=== PATIENT | female | born 1980 | race Caucasian/White ===

== ENCOUNTER 2019-01-11 06:00 | Inpatient (IN) | payer OTHER ==
[2019-01-11 07:04] VITALS: BMI 32.0
[2019-01-11] MEDS: ELECTROLYTE-148 SOLN 1,000 ML IV SCH (07:15)
[2019-01-11] MEDS ORDERED: ELECTROLYTE-148 SOLN 500 ML IV ONE (07:57)
[2019-01-11] MEDS ORDERED: CITRIC ACID/SODIUM CITRATE 30 ML UNIT-DOSE CUP PO ONE ×2 (07:57→07:58)
[2019-01-11] MEDS ORDERED: morphine SULFATE/Preservative Free 0.5 MG/ML (1cc Syringe) EP ONE (07:58)
[2019-01-11] MEDS ORDERED: ONDANSETRON 4 MG/2 ML VIAL IVPUSH PRN (07:58)
--- NOTE | 2019-01-11 08:01 | HP ---
Past Medical History - Admission Chief Complaint: RLTCS, BTL History of Present Illness: 38yo @ 39wks here for scheduled RLTCS, BTL No VB/LOF. No ctx. +FM Preg c/b AMA, nl testing. prior C/S History Source: Patient Limitations to Obtaining History: Language Barrier - Past Medical History MAILMASTER: No: Alzheimer's, CVA, Dementia, Migraine, Multiple Sclerosis, Peripheral Neuropathy, Parkinson's, Seizure, Syncope, TIA, Vertigo, Other Cardiovascular: No: AFIB, Aneurysm, Aortic Insufficiency, Aortic Stenosis, CAD, CHF, Deep Vein Thrombosis, HTN, Hyperlipdemia, NH, Mitral Insufficiency, Mitral Stenosis, Murmur, Pulmonary Hypertension, Other Pulmonary: No: Asthma, Bronchitis, Cancer, COPD, O2 Dependent, Pneumonia, Previously Intubated, Pulmonary Embolus, Pulmonary Fibrosis, Sleep Apnea, Other Gastrointestinal: No: Ascites, Cancer, Constipation, Crohn's Disease, Diverticulitis, Diverticulosis, Esophageal Varices, Gastritis, GERD, GI Bleed, Hemorrhoids, Hiatal Hernia, Inflamatory Bowel Disease, Irritable Bowel Disease, Pancreatitis, Peptic Ulcer Disease, Ulcerative Colitis, Other ...: 3 ...Para: 2 ...Term: 2 ...: 0 ...Spon : 0 ...Induced : 0 ...Multiple Gestation: 0 ...LMP: 04/12/18 ... Weeks Gestation by Dates: 39 ...EDC by Dates: 01/16/19 ...EDC by Sono: 01/17/19 Heme/Onc: Yes: Anemia Infectious Disease: No: AIDS, C-Diff, Herpes Zoster, HIV, MRSA, STD's, Tuberculosis, VREF, Other Psych: No: Addictions, Anxiety, Bipolar, Depression, Panic, Psychosis, Schizophrenia, Other Musculoskeletal: No: Bursitis, Chronic low back pain, Hemiparesis, Hemiplegia, Osteoarthritis, Paraplegia, Other Rheumatology: No: Fibromyalgia, Gout, Lupus, Rheumatoid Arthritis, Sarcoidosis, Vasculitis, Other ENT: No: Allergic Rhinitis, Sinusitis, Other - Past Surgical History Past Surgical History: Yes: Hx Myomectomy: No Hx Transabdominal Cerclage: No - Smoking History Smoking history: Never smoked Have you smoked in the past 12 months: No - Alcohol/Substance Use Hx Alcohol Use: No History of Substance Use: reports: None - Social History Usual Living Arrangement: Yes: Alone ADL: Independent History of Recent Travel: No Home Medications - Allergies Allergies/Adverse Reactions: Allergies Allergy/AdvReac Type Severity Reaction Status Date / Time No Known Allergies Allergy Verified 01/11/19 07:40 - Home Medications Home Medications: Ambulatory Orders Pnv No.95/Ferrous Fum/Folic AC [ Vitamin Tablet] 1 each PO DAILY Physical Exam - Maternity Vital Signs: Vital Signs Temperature 98.3 F 01/11/19 06:00 Pulse Rate 94 H 01/11/19 06:00 Respiratory Rate 18 01/11/19 06:00 Blood Pressure 120/68 01/11/19 06:00 O2 Sat by Pulse Oximetry (%) Constitutional: Yes: Well Nourished, No Distress, Calm Eyes: Yes: WNL, Conjunctiva Clear, EOM Intact - Abdominal Exam/OB Number of Fetuses: Single Presentation: Vertex Contractions: No Category: I Accelerations: Non-Uniform Decelerations: None - Physical Exam Edema: No Problem List - Problems (1) History of Code(s): Z98.891 - HISTORY OF UTERINE SCAR FROM PREVIOUS SURGERY Assessment/Plan 38yo @ 39wks here for RLTCS, BTL Admit to L&D NPO, IVFs Cao SCDs Ancef Risk of procedure including bleeding, infection, injury to surrounding organs, permanency of tubal ligation. All questions answered in Turkish. Consents signed. Alejandra Harding MD
[2019-01-11] MEDS ORDERED: ceFAZolin SODIUM 1 GM VIAL ONE (08:07)
[2019-01-11] MEDS ORDERED: morphine SULFATE/PF 0.5 MG/ML (2cc Syringe - QUVA) ONE (08:07)
[2019-01-11] MEDS ORDERED: OXYTOCIN 10 UNITS/ML VIAL ONE (08:32)
[2019-01-11] MEDS ORDERED: IBUPROFEN 800 MG/8 ML IJ IVPB PRN (09:02)
[2019-01-11] MEDS ORDERED: oxyCODONE HCL 5 MG TABLET PO PRN (09:02)
[2019-01-11] MEDS ORDERED: METHYLERGONOVINE MALEATE 0.2 MG/1 ML AMP IM PRN (09:02)
--- NOTE | 2019-01-11 09:02 | OP ---
Operative Note - Note: Operative Date: 01/11/19 Pre-Operative Diagnosis: Prior C/S, desires permanent sterilization Operation: Repeat Low Transverse Findings: VMI, KISHOR position. No nuchal. No meconium. Apgatrs 04/05. Weight pending. Normal tubes and ovaries. Post-Operative Diagnosis: Same as Pre-op Surgeon: Yaneth Harding Segmental Wall Installer: Skyler Lucio Anesthesia: Spinal Estimated Blood Loss (mls): 400 Drains, Volume Out (mls): 200 (clear urine) Operative Report Dictated: Yes
[2019-01-11] MEDS ORDERED: OXYTOCIN 20 UNITS in 0.9% NS 20 UNIT/1,000 ML INFUS.BAG IV ONE (09:42)
[2019-01-11] MEDS: OXYTOCIN 20 UNITS in 0.9% NS 20 UNIT/1,000 ML INFUS.BAG IV SCH ×2 (09:46→18:14)
[2019-01-11] MEDS: PRENATAL VITAMINS W/ FOLIC ACID TABLET (FP) PO SCH (10:06)
--- NOTE | 2019-01-11 11:52 | OP ---
DATE OF OPERATION: 01/11/2019 PREOPERATIVE DIAGNOSIS: A 39-week , prior section, desires permanent sterilization. POSTOPERATIVE DIAGNOSIS: A 39-week , prior section, desires permanent sterilization. PROCEDURE: Repeat low-transverse section. ANESTHESIA: Kalia Velazco MD ANESTHESIA TYPE: Spinal. SURGEON: Yaneth Harding MD CORE LOADER: TOO Mccrary IV FLUIDS: Per Anesthesia record. ESTIMATED BLOOD LOSS: 400 mL. URINE OUTPUT: 200 mL of clear urine at the end of the procedure. FINDINGS: Viable male infant, KISHOR position. No nuchal, no meconium. Thin lower uterine segment. Weight pending. Apgars 8 and 9. Normal tubes and ovaries bilaterally. COMPLICATIONS: None. CONDITION: Stable to recovery room. NATURE OF PROCEDURE: After the appropriate consents were signed, patient was taken to the operating room. Spinal anesthesia was administered. Cao catheter had been inserted prior to entry into the operating room. The abdomen was prepped and draped in normal sterile fashion. Timeout was performed, confirming correct patient and procedure. A Pfannenstiel incision was made through the prior incision and carried through to the underlying layers until the fascia was nicked in the midline. The fascia was then extended laterally with the Pina scissors. The fascia and rectus muscles were noted to be adhered together. The superior aspect of the fascia was grasped with a Liliam clamp, tented upwards, and the rectus muscles that could be dissected off were dissected off. The peritoneum was then grasped with 2 hemostats, tented upwards, and entered sharply with the Metzenbaum scissors. Peritoneum was then extended manually. Bladder flap was created with the Metzenbaum scissors and then digitally. Bladder blade was inserted. The uterine segment was noted to be very thin. Using a scalpel, it was incised in a low transverse fashion. Clear amniotic fluid, copious amounts, was noted. The infant's head was delivered without difficulty, as were the remaining shoulder and body. Cord was clamped and cut. The was handed off to the awaiting pediatric staff. The placenta was then manually cleared from the uterus. The uterus was cleared of all clot and debris. The uterus was then exteriorized. The hysterotomy was closed in 2 layers with a 1-0 Vicryl, with good hemostasis. Attention was then paid to the tubal sterilization. The fallopian tube on the right was grasped with the [place], carried through to the fimbriated end in the isthmic portion. The tube was then suture ligated with a 2-0 plain in the modified Ryegate fashion. The tubal stump was then removed with the Metzenbaum scissors. The tubal stump was then cauterized with the Bovie. Attention was then paid to the left fallopian tube, which was then also ligated in the modified Ryegate fashion without difficulty. The uterus was then returned to the abdomen. The hysterotomy was reapproximated and noted to have an area centrally of hemostasis, which was reinforced with a 0 Vicryl for good hemostasis. The fallopian stumps were then reinspected and noted to be hemostatic. The fascia was then closed with a 0 Vicryl. The skin was closed with a 3-0 Vicryl. Appropriate dressing and bandages were placed. All sponge, lap, needle counts were correct x3. The patient did receive Ancef at the start of the procedure. She was taken from the operating room to the recovery area in stable condition. MD PARAG SOTO/[id number]
[2019-01-11] MEDS: FERROUS SO4 325 MG TABLET (FP) PO SCH (17:59)
[2019-01-11] MEDS ORDERED: SENNOSIDES/DOCUSATE COMBO (SENNA PLUS) TABLET (UD) PO PRN (22:00)
[2019-01-12] MEDS: SIMETHICONE 80 MG TAB.CHEW (FP) PO PRN ×2 (04:52→15:49)
[2019-01-12] MEDS: IBUPROFEN 600 MG TABLET (FP) PO PRN ×3 (04:53→15:49)
--- NOTE | 2019-01-12 05:25 | PN ---
Post Progress Note - Subjective Subjective: 38 yo Para 3, status post repeat , seen and evaluated. She c/o mild incision pain. Post Day: 1 Type of Delivery: Repeat C/S Vital Signs: Vital Signs Temperature 98 F 01/12/19 02:00 Pulse Rate 77 01/12/19 02:00 Respiratory Rate 18 01/12/19 05:00 Blood Pressure 105/52 L 01/12/19 02:00 O2 Sat by Pulse Oximetry (%) 100 01/11/19 09:55 Breast Exam: Yes: Soft Uterus: Yes: Fundus @ umbilicus Incision: Yes: Dressing dry and intact Abdomen/GI: Yes: Abdomen soft, Tolerating PO Lochia: Yes: Rubra Lochia, amount: Small Extremities: Yes: Calves non-tender Activity: Other (She's lying in bed) Problem List - Problems (1) Status post repeat low transverse section Code(s): Z98.891 - HISTORY OF UTERINE SCAR FROM PREVIOUS SURGERY Assessment/Plan Status post repeat Low Transverse Ambulation Analgesia as needed Continue routine post op care
[2019-01-12 08:15] LABS: BASO % 0.2 % (0-2.0); EOS % 1.8 % (0-4.5); HEMATOCRIT 32.1 % (32.4-45.2); HEMOGLOBIN 10.5 GM/dL (10.7-15.3); LYMPH % 10.1 % (8-40); MCHC 32.6 g/dl (32.0-36.0); MEAN CELL VOLUME 76.7 fl (80-96); MEAN PLT VOLUME 8.7 fl (7.5-11.1); MONO % 6.5 % (3.8-10.2); NEUT % 81.4 % (42.8-82.8); PLATELET COUNT 198 K/MM3 (134-434); RBC 4.18 M/mm3 (3.60-5.2); RDW 14.6 % (11.6-15.6); WHITE BLOOD COUNT 12.6 K/mm3 (4.0-10.0)
[2019-01-12] MEDS ORDERED: BISACODYL 10 MG SUPP.RECT RC PRN (09:02)
[2019-01-12] MEDS: PRENATAL VITAMINS W/ FOLIC ACID TABLET (FP) PO SCH (09:19)
[2019-01-12] MEDS: FERROUS SO4 325 MG TABLET (FP) PO SCH ×2 (09:19→18:34)
[2019-01-12] MEDS: ACETAMINOPHEN 325 MG TABLET (FP) PO PRN ×2 (09:20→15:49)
--- NOTE | 2019-01-12 13:24 | PN ---
HC Provider Note Provider Note: Anesthesia Post-op Pt s/p spinal for c/section Pt found awake and alert -- denies h/a, n/v, urinary retention reports some puritis has not requested medication for this Ambulating well VSS no apparent anesthesia complications Christelle Saldaña.
[2019-01-12] MEDS: ELECTROLYTE-148 SOLN 1,000 ML IV SCH (19:57)
[2019-01-12] MEDS: OXYTOCIN 20 UNITS in 0.9% NS 20 UNIT/1,000 ML INFUS.BAG IV SCH (19:57)
[2019-01-13] MEDS: SIMETHICONE 80 MG TAB.CHEW (FP) PO PRN ×3 (02:00→17:38)
[2019-01-13] MEDS: ACETAMINOPHEN 325 MG TABLET (FP) PO PRN ×4 (02:00→21:06)
[2019-01-13] MEDS: IBUPROFEN 600 MG TABLET (FP) PO PRN ×4 (02:01→21:05)
--- NOTE | 2019-01-13 07:14 | PN ---
Post Progress Note - Subjective Subjective: Ambulating, passing flatus, tolerating PO, voiding, lochia decreased Type of Delivery: Repeat C/S Vital Signs: Vital Signs Temperature 97.8 F 01/12/19 22:00 Pulse Rate 74 01/12/19 22:00 Respiratory Rate 18 01/12/19 22:00 Blood Pressure 110/58 L 01/12/19 22:00 O2 Sat by Pulse Oximetry (%) 100 01/11/19 09:55 Breast Exam: Yes: Other (deferred, not breast feedding due to breast implants) Uterus: Yes: Fundus Firm Incision: Yes: Sutures intact (dry, clean, closed, no evidence of infection) Abdomen/GI: Yes: Abdomen soft (appropriately tender) Lochia, amount: Small Extremities: Yes: Calves non-tender Activity: Ambulating - Labs Labs: CBC WBC 12.6 K/mm3 (4.0-10.0) H 01/12/19 07:15 RBC 4.18 M/mm3 (3.60-5.2) 01/12/19 07:15 Hgb 10.5 GM/dL (10.7-15.3) L 01/12/19 07:15 Hct 32.1 % (32.4-45.2) L 01/12/19 07:15 MCV 76.7 fl (80-96) L 01/12/19 07:15 MCH 25.0 pg (25.7-33.7) L 01/12/19 07:15 MCHC 32.6 g/dl (32.0-36.0) 01/12/19 07:15 RDW 14.6 % (11.6-15.6) 01/12/19 07:15 Plt Count 198 K/MM3 (134-434) 01/12/19 07:15 MPV 8.7 fl (7.5-11.1) 01/12/19 07:15 Absolute Neuts (auto) 10.3 K/mm3 (1.5-8.0) H 01/12/19 07:15 Neutrophils % 81.4 % (42.8-82.8) 01/12/19 07:15 Lymphocytes % 10.1 % (8-40) D 01/12/19 07:15 Monocytes % 6.5 % (3.8-10.2) 01/12/19 07:15 Eosinophils % 1.8 % (0-4.5) 01/12/19 07:15 Basophils % 0.2 % (0-2.0) 01/12/19 07:15 Nucleated RBC % 0 % (0-0) 01/12/19 07:15 Assessment/Plan POD # 2 in stable condition and adequate recovery, PP/Post-op precautions discussed -Continue PP care -Anticipate D/C home tomorrow
[2019-01-13] MEDS: FERROUS SO4 325 MG TABLET (FP) PO SCH ×2 (08:39→17:37)
[2019-01-13] MEDS: PRENATAL VITAMINS W/ FOLIC ACID TABLET (FP) PO SCH (10:51)
[2019-01-13 21:14] VITALS: TEMP 98.3
[2019-01-14] MEDS: ACETAMINOPHEN 325 MG TABLET (FP) PO PRN ×2 (05:56→09:12)
[2019-01-14] MEDS: IBUPROFEN 600 MG TABLET (FP) PO PRN ×2 (05:56→09:10)
[2019-01-14 06:47] LABS: BASO % 0.2 % (0-2.0); EOS % 0.8 % (0-4.5); HEMATOCRIT 30.7 % (32.4-45.2); LYMPH % 24.5 % (8-40); MCH 25.2 pg (25.7-33.7); MCHC 32.6 g/dl (32.0-36.0); MEAN CELL VOLUME 77.3 fl (80-96); MEAN PLT VOLUME 8.5 fl (7.5-11.1); MONO % 6.4 % (3.8-10.2); NEUT % 68.1 % (42.8-82.8); PLATELET COUNT 245 K/MM3 (134-434); RBC 3.98 M/mm3 (3.60-5.2); RDW 15.1 % (11.6-15.6); WHITE BLOOD COUNT 8.6 K/mm3 (4.0-10.0)
--- NOTE | 2019-01-14 07:23 | PN ---
Post Progress Note Post Day: 3 Type of Delivery: Repeat C/S Vital Signs: Vital Signs Temperature 98.3 F 01/13/19 21:12 Pulse Rate 89 01/13/19 21:12 Respiratory Rate 19 01/13/19 21:12 Blood Pressure 132/75 01/13/19 21:12 O2 Sat by Pulse Oximetry (%) 100 01/11/19 09:55 Uterus: Yes: Fundus below umbilicus Incision: Yes: Dressing dry and intact, Sutures intact Abdomen/GI: Yes: Abdomen soft Lochia: Yes: Rubra Lochia, amount: Small Extremities: Yes: Calves non-tender Activity: Ambulating - Labs Labs: CBC WBC 12.6 K/mm3 (4.0-10.0) H 01/12/19 07:15 RBC 4.18 M/mm3 (3.60-5.2) 01/12/19 07:15 Hgb 10.5 GM/dL (10.7-15.3) L 01/12/19 07:15 Hct 32.1 % (32.4-45.2) L 01/12/19 07:15 MCV 76.7 fl (80-96) L 01/12/19 07:15 MCH 25.0 pg (25.7-33.7) L 01/12/19 07:15 MCHC 32.6 g/dl (32.0-36.0) 01/12/19 07:15 RDW 14.6 % (11.6-15.6) 01/12/19 07:15 Plt Count 198 K/MM3 (134-434) 01/12/19 07:15 MPV 8.7 fl (7.5-11.1) 01/12/19 07:15 Absolute Neuts (auto) 10.3 K/mm3 (1.5-8.0) H 01/12/19 07:15 Neutrophils % 81.4 % (42.8-82.8) 01/12/19 07:15 Lymphocytes % 10.1 % (8-40) D 01/12/19 07:15 Monocytes % 6.5 % (3.8-10.2) 01/12/19 07:15 Eosinophils % 1.8 % (0-4.5) 01/12/19 07:15 Basophils % 0.2 % (0-2.0) 01/12/19 07:15 Nucleated RBC % 0 % (0-0) 01/12/19 07:15 Problem List - Problems (1) History of Code(s): Z98.891 - HISTORY OF UTERINE SCAR FROM PREVIOUS SURGERY Assessment/Plan 38yo s/p RLTCS, POD#3 Routine PP care OOB, ambulate Labs reviewed Anticipate d/c to home today, follow up in 7-10 days for an incision check Alejandra Harding MD
--- NOTE | 2019-01-14 07:59 | DS ---
Physical Examination Vital Signs: Vital Signs Temperature 98.3 F 01/13/19 21:12 Pulse Rate 89 01/13/19 21:12 Respiratory Rate 19 01/13/19 21:12 Blood Pressure 132/75 01/13/19 21:12 O2 Sat by Pulse Oximetry (%) 100 01/11/19 09:55 Constitutional: Yes: Well Nourished, No Distress, Calm Eyes: Yes: WNL, Conjunctiva Clear, EOM Intact HENT: Yes: WNL, Atraumatic, Normocephalic Neck: Yes: WNL, Supple, Trachea Midline Cardiovascular: Yes: WNL, Regular Rate and Rhythm Respiratory: Yes: WNL, Regular, CTA Bilaterally Gastrointestinal: Yes: WNL, Normal Bowel Sounds Musculoskeletal: Yes: WNL Extremities: Yes: WNL Edema: No Integumentary: Yes: WNL Neurological: Yes: WNL, Alert, Oriented ...Motor Strength: WNL Psychiatric: Yes: WNL Labs: CBC, BMP 01/14/19 06:15 Discharge Summary Reason For Visit: ADMIT SCHEDULED Current Active Problems History of (Acute) Status post repeat low transverse section (Acute) Procedures: Principal: RLTCS Hospital Course: Patient presented for a scheduled RLTCS She had an uncomplicated delivery She met all / milestones She was discharged home on POD#3 in stable condition Alejandra Harding MD Condition: Stable - Instructions Diet, Activity, Other Instructions: Regular Diet Follow up in one week for an incision check with Dr. Harding on 01/22 Referrals: Yaneth Harding MD [Staff Physician] - Disposition: HOME - Home Medications Comprehensive Discharge Medication List: Ambulatory Orders Pnv No.95/Ferrous Fum/Folic AC [ Vitamin Tablet] 1 each PO DAILY Ibuprofen 600 mg PO Q6H PRN #30 tablet 01/13/19 Oxycodone HCl/Acetaminophen [Percocet 5-325 mg Tablet -] 1 - 2 tab PO Q6H PRN # 20 tab MDD 4 01/13/19
[2019-01-14 08:43] VITALS: BP 125/70; PULSE 62
[2019-01-14] MEDS: PRENATAL VITAMINS W/ FOLIC ACID TABLET (FP) PO SCH (09:10)
[2019-01-14] MEDS: FERROUS SO4 325 MG TABLET (FP) PO SCH (09:10)
--- NOTE | 2019-01-19 17:14 | PATH ---
Surgical Pathology Report Patient Name: ROSITA RIZZO [place]. Rec. #: [id number] /Age/Gender: 1980 (Age: 38) / F Account: [id number] Location: [facility] OBS/POPULATION HEALTH COACH Taken: 01/11/2019 Received: 01/12/2019 Reported: 01/19/2019 Physicians: Yaneth Harding Specimen(s) Received A: PLACENTA B: RIGHT PORTION FALLOPIAN TUBE C: LEFT PORTION FALLOPIAN TUBE Clinical History , 39.1 weeks previous and bilateral tubal ligation, 04/2001, advanced maternal age Final Diagnosis A. PLACENTA: THIRD TRIMESTER PLACENTA. TRIVASCULAR CORD. MEMBRANES WITH NO DIAGNOSTIC ABNORMALITIES. B. RIGHT PORTION OF FALLOPIAN TUBE: COMPLETE CROSS SECTION OF THE FALLOPIAN TUBE LUMEN IDENTIFIED. C. LEFT PORTION OF FALLOPIAN TUBE: COMPLETE CROSS SECTION OF THE FALLOPIAN TUBE LUMEN IDENTIFIED. Electronically Signed Jeanna Remy M.D. Gross Description A. The specimen is received fresh labeled placenta and is a 556 gram, 17.5 x 16.5 x 2.4 cm. placenta with attached membranes and umbilical cord. The attached membranes are bocanegra, translucent with focal opacities and insert marginally. The umbilical cord measures 36 cm. in length and averages 1.2 cm. in diameter. The cord inserts eccentrically, 3 cm. to the nearest margin. No true knots or strictures are identified. Cut surface of the umbilical cord reveals 3 vessels. The surface is lai blue with moderate fibrin deposition and appropriate caliber vessels. The maternal surface is red-brown with focal defects. Sectioning reveals red-brown, spongy parenchyma. No lesions are identified. Systems Analyst Developer sections are submitted in three cassettes as follows: 1- membrane rolls and umbilical cord; 2-3- full thickness sections of placenta. Is B. Received in formalin labeled "right portion of fallopian tube," is a 0.8 cm in length portion of fallopian tube. No fimbria are present. The outer surface is bocanegra-taylor and smooth. Sectioning reveals an unremarkable lumen. Systems Analyst Developer sections are submitted in one cassette. C. Received in formalin labeled "left portion of fallopian tube," is a 0.7 cm in length portion of fallopian tube. No fimbria are present. The outer surface is bocanegra-taylor and smooth. Sectioning reveals an unremarkable lumen. Systems Analyst Developer sections are submitted in one cassette. 01/18/2019 [facility]01/18/2019
== END 2019-01-14 13:00 | disposition home or self-care (01) | DRG 540 ==
LOC: JLDR 06:00 → J3W 10:16
PROVIDERS: ADMIT Obstetrics & Gynecology; ATTEND Obstetrics & Gynecology
PROC: 10D00Z1 Extraction of Products of Conception, Low, Open Approach (ICD-10-PCS; principal; 2019-01-11)
DX: O34.211 Maternal care for low transverse scar from previous cesarean delivery (principal); Z3A.39 39 weeks gestation of pregnancy; Z37.0 Single live birth; L29.9 Pruritus, unspecified
CPT/HCPCS: 36415; 85025; 85461; 86999; 88302-TC; 88307-TC